=== PATIENT | female | born 1985 | race African-American/Black ===

== ENCOUNTER 2016-09-14 20:44 | Inpatient (IN) ==
[2016-09-14] MEDS ORDERED: PEPCID PO PRN (20:55)
[2016-09-14] MEDS ORDERED: BRETHINE SUBQ PRN (20:55)
[2016-09-14] MEDS ORDERED: ZOFRAN IV PRN (20:55)
[2016-09-14] MEDS ORDERED: AMBIEN PO PRN (20:55)
[2016-09-14] MEDS ORDERED: TYLENOL PO PRN (20:55)
[2016-09-14] MEDS ORDERED: PEPCID IV PRN (20:55)
[2016-09-14] MEDS ORDERED: STADOL IV PRN ×3 (20:55)
[2016-09-14] MEDS ORDERED: KEFZOL 1 GM/D5W 1 GM/50 ML IVPB IV PRN (20:55)
[2016-09-14] MEDS ORDERED: LR 1,000 ML IV ONE (22:00)
[2016-09-14 22:31] LABS: MANUAL DIFF NEEDED? NO; URINE SOURCE VOIDED
[2016-09-14 22:34] LABS: BILIRUBIN URINE NEGATIVE (NEGATIVE); BLOOD URINE NEGATIVE (NEGATIVE); CLARITY CLEAR (CLEAR); COLOR YELLOW; GLUCOSE URINE NEGATIVE (NEGATIVE); LEUKOCYTES URINE 1+ (NEGATIVE); NITRITE URINE NEGATIVE (NEGATIVE); PH URINE 6.5; PROTEIN URINE NEGATIVE (NEGATIVE); SP GRAVITY URINE 1.015; UROBILINOGEN URINE 1+(1 mg/dL)
[2016-09-14 22:54] LABS: BASO% 0.3 % (0.0-0.8); EOS% 1.3 % (0.0-10.0); HEMATOCRIT 35.6 % (37.0-47.0); HEMOGLOBIN 11.8 g/dL (12.0-16.0); IMM GRAN# 0.01 X1000 (0.0-0.04); IMM GRAN% 0.1 % (0.0-0.5); LYMPH# 1.84 X1000 (1.2-3.4); LYMPH% 23.1 % (20.5-51.1); MCH 27.2 PG (27-31); MCHC 33.1 g/dL (33-37); MONO# 0.68 X1000 (0.11-0.59); MONO% 8.5 % (1.7-9.3); MPV 9.8 FL (7.4-10.4); NEUT% 66.7 % (42.2-75.2); PLT 326 X1000 (130-400); RBC 4.34 XMIL (4.2-5.4)
[2016-09-14] MEDS ORDERED: CYTOTEC PO ONE (23:00)
[2016-09-15] MEDS ORDERED: CYTOTEC PO SCH ×2 (03:00→07:00)
[2016-09-15] MEDS ORDERED: CYTOTEC PO ONE (03:00)
[2016-09-15] MEDS: LR 1,000 ML IV SCH ×2 (06:53→07:40)
[2016-09-15] MEDS ORDERED: PITOCIN 30 UNITS/LR 30 UNITS/500 ML IV.SOLN IV SCH (07:00)
[2016-09-15] MEDS ORDERED: FENTANYL-BUPIV-NS 2 MCG-0.1% 200 ML EPIDURAL PRN (07:25)
[2016-09-15] MEDS ORDERED: XYLOCAINE-MPF 1% INJ ONE (07:30)
[2016-09-15] MEDS ORDERED: XYLOCAINE-MPF 1% ONE (08:38)
[2016-09-15] MEDS ORDERED: MINERAL OIL ONE (08:38)
[2016-09-15] MEDS ORDERED: AMBIEN PO PRN (10:43)
[2016-09-15] MEDS ORDERED: NORCO-10 PO PRN (10:43)
[2016-09-15] MEDS ORDERED: HYDROXYZINE PO PRN (10:43)
[2016-09-15] MEDS ORDERED: PITOCIN 30 UNITS/LR 30 UNITS/500 ML IV.SOLN IV ONE (10:43)
[2016-09-15] MEDS ORDERED: BENADRYL IV PRN (10:43)
[2016-09-15] MEDS ORDERED: MINERAL OIL PO PRN (10:43)
[2016-09-15] MEDS ORDERED: M-M-R II VACCINE SUBQ ONE (10:43)
[2016-09-15] MEDS ORDERED: PERI MEDS (DERMOPLAST/NUPERCAINAL/TUCKS) MISC PRN (10:43)
[2016-09-15] MEDS ORDERED: XYLOCAINE-MPF 1% INJ PRN (10:43)
[2016-09-15] MEDS ORDERED: BENADRYL PO PRN (10:43)
[2016-09-15] MEDS ORDERED: CYTOTEC PO PRN (10:43)
[2016-09-15] MEDS ORDERED: BOOSTRIX VACCINE IM ONE (10:43)
[2016-09-15] MEDS ORDERED: PITOCIN IM PRN (10:43)
[2016-09-15] MEDS ORDERED: PITOCIN 20 UNITS/LR 20 UNITS/1,000 ML IV.SOLN IV SCH (10:43)
[2016-09-15] MEDS ORDERED: HYDROXYZINE IM PRN (10:43)
--- NOTE | 2016-09-15 14:19 | OPERATIVE NOTE ---
PROCEDURE DATE: 09/15/2016 DELIVERY NOTE: The patient underwent sterile controlled spontaneous vaginal delivery of a viable female , weighing 7 pounds 2 ounces with Apgars of 9 and 10. No nuchal. No dystocia. Cord doubly clamped and cut. Infant handed off. The placenta delivered spontaneously and intact. Uterus firm with Pitocin and massage. Uterus, cervix, and vagina explored and no lacerations noted. ESTIMATED BLOOD LOSS: 200 mL. COMPLICATIONS: None. cc: Maude Aj MD
[2016-09-15] MEDS: PERICOLACE PO SCH (20:36)
[2016-09-15] MEDS: TRANDATE PO SCH (20:36)
[2016-09-15] MEDS: NORCO-5 PO PRN (22:21)
[2016-09-16] MEDS: NORCO-5 PO PRN ×2 (04:16→22:58)
[2016-09-16 05:08] LABS: HEMATOCRIT 33.5 % (37.0-47.0); HEMOGLOBIN 10.9 g/dL (12.0-16.0); MCH 26.7 PG (27-31); MCHC 32.5 g/dL (33-37); MCV 82.1 FL (81-99); MPV 9.5 FL (7.4-10.4); RBC 4.08 XMIL (4.2-5.4)
[2016-09-16] MEDS: TRANDATE PO SCH ×2 (09:12→20:00)
[2016-09-16] MEDS: MOTRIN PO PRN ×2 (10:24→22:58)
[2016-09-16] MEDS: PERICOLACE PO SCH (19:59)
[2016-09-17] MEDS: MOTRIN PO PRN (08:20)
[2016-09-17] MEDS: TRANDATE PO SCH (08:20)
[2016-09-17] MEDS: NORCO-5 PO PRN (08:20)
[2016-09-17 08:23] VITALS: BP 137/82
== END 2016-09-17 11:40 | disposition home or self-care (01) ==
LOC: P.LD 20:44 → P.WC 09-15 13:02
PROVIDERS: ADMIT Obstetrics & Gynecology; ATTEND Obstetrics & Gynecology